=== PATIENT | female | born 1960 | race Caucasian/White ===

== ENCOUNTER 2017-06-22 05:09 | Emergency (ER) | payer BC, OTHER ==
[2017-06-22] MEDS ORDERED: NORMAL SALINE 1000 ML 1,000 ML IV ONE (05:31)
[2017-06-22] MEDS ORDERED: HYDROMORPHONE HCL INJ/PF 2 MG/ML AMPULE IV ONE ×2 (05:31→06:54)
[2017-06-22] MEDS ORDERED: ONDANSETRON HCL INJ/PF 4 MG/2 ML SDV IV ONE (05:31)
--- NOTE | 2017-06-22 05:33 | ER Document Report ---
ED Medical Screen (RME) - General Chief Complaint: Abdominal Pain Stated Complaint: LOWER RIGHT ABDOMINAL PAIN Time Seen by Provider: 06/22/17 05:28 Notes: 57-year-old female, chief complaint of right lower abdominal pain radiating around to her right flank. Symptoms started suddenly and woke her from sleep, pain is severe and sharp, she states she vomited multiple times before coming to the emergency department. She has had kidney stones many years ago. She takes no daily medications. She states her only other past medical history is C -section and a tubal ligation. TRAVEL OUTSIDE OF THE [place] IN LAST 30 DAYS: No - Related Data Allergies/Adverse Reactions: No Known Allergies Allergy (Unverified 06/22/17 05:13) Past Medical History Renal/ Medical History: Denies: Hx Peritoneal Dialysis Past Surgical History: Reports: Hx Section Physical Exam - Vital signs Vitals: Temp Pulse Resp BP Pulse Ox 97.6 F 80 22 H 201/96 H 98 06/22/17 05:19 06/22/17 05:19 06/22/17 05:19 06/22/17 05:19 06/22/17 05:19 - Abdominal Tenderness: Tender - General right lower abdominal tenderness - Back Back: CVA tenderness - Right-sided CVA tenderness Course - Vital Signs Vital signs: Temp Pulse Resp BP Pulse Ox 97.6 F 80 22 H 201/96 H 98 06/22/17 05:19 06/22/17 05:19 06/22/17 05:19 06/22/17 05:19 06/22/17 05:19
[2017-06-22 06:01] LABS: ABSOLUTE BASOPHILS # (AUTO) 0.1 10^3/uL (0.0-0.2); ABSOLUTE EOSINOPHILS # (AUTO) 0.4 10^3/uL (0.0-0.6); ABSOLUTE LYMPHOCYTES (AUTO) 2.4 10^3/uL (0.5-4.7); ABSOLUTE MONOCYTES (AUTO) 0.7 10^3/uL (0.1-1.4); ABSOLUTE NEUT (AUTO) 8.7 10^3/uL (1.7-8.2); BASOPHILS % (AUTO) 0.7 % (0-2); EOSINOPHILS % (AUTO) 3.6 % (0-6); LYMPHOCYTES % (AUTO) 19.5 % (13-45); MEAN CORPUSCULAR HEMOGLOBIN 29.2 pg (27.0-33.4); MEAN CORPUSCULAR HGB CONC 33.4 g/dL (32.0-36.0); MEAN CORPUSCULAR VOLUME 87 fl (80-97); MONOCYTES % (AUTO) 5.8 % (3-13); PLATELET COUNT 312 10^3/uL (150-450); RED BLOOD COUNT 4.82 10^6/uL (3.72-5.28); RED CELL DISTRIBUTION WIDTH 12.7 % (11.5-14.0); SEGMENTED NEUTROPHILS % (AUTO) 70.4 % (42-78); TOTAL CELLS COUNTED % (AUTO) 100 %; WHITE BLOOD COUNT 12.4 10^3/uL (4.0-10.5)
--- NOTE | 2017-06-22 06:15 | RADIOLOGY REPORT (SQ) ---
EXAM DESCRIPTION: CT LTD RENAL STONE PROTOCOL ON CLINICAL HISTORY: 57 years Female, right abd and flank pain, vomiting COMPARISON: None. TECHNIQUE: No contrast. Coronal and sagittal reformat. This exam was performed according to our departmental dose-optimization program, which includes automated exposure control, adjustment of the mA and/or kV according to patient size and/or use of iterative reconstruction technique. FINDINGS: 0.2 cm right ureterovesicular junction stone, mild/moderate right hydronephrosis/hydroureter. No free fluid. Punctate uncomplicated left nephrolithiasis. Moderate hepatic steatosis with focal sparing. Moderate fat replacement of the pancreatic head. Splenule. Normal appendix. Normal CT appearance of the gallbladder. Mild scoliotic curvature. Bilateral tubal ligation clips. Unenhanced inferior chest, intra-abdominal/intrapelvic structures, and musculoskeleton appear otherwise grossly intact. IMPRESSION: 0.2 cm right UVJ stone with low-grade obstruction.
[2017-06-22 06:17] LABS: ALANINE AMINOTRANSFERASE 76 U/L (9-52); ALBUMIN 4.8 g/dL (3.5-5.0); ALKALINE PHOSPHATASE 120 U/L (38-126); ANION GAP 14 (5-19); ASPARTATE AMINO TRANSFERASE 44 U/L (14-36); BILIRUBIN,DIRECT 0.3 mg/dL (0.0-0.4); BILIRUBIN,TOTAL 0.5 mg/dL (0.2-1.3); BLOOD UREA NITROGEN 21 mg/dL (7-20); CARBON DIOXIDE 24 mmol/L (22-30); CHLORIDE 105 mmol/L (98-107); GLUCOSE 206 mg/dL (75-110); POTASSIUM 4.3 mmol/L (3.6-5.0); SODIUM 143.4 mmol/L (137-145); TOTAL PROTEIN 7.7 g/dL (6.3-8.2)
[2017-06-22] MEDS ORDERED: KETOROLAC TROMETHAMINE INJ/PF 30 MG/1 ML SDV IV ONE (06:42)
[2017-06-22] MEDS ORDERED: TAMSULOSIN HCL 0.4 MG CAP.SR.24H PO ONE (06:55)
--- NOTE | 2017-06-22 07:03 | ER Document Report ---
ED General - General Chief Complaint: Abdominal Pain Stated Complaint: LOWER RIGHT ABDOMINAL PAIN Time Seen by Provider: 06/22/17 05:28 Notes: 57-year-old female history history of previous kidney stone woke at 2 AM with severe pain in her right back and radiating down to the right lower quadrant. Positive nausea and vomiting. Nothing seems to make it better or worse. Denies any fevers, chills, sweats. TRAVEL OUTSIDE OF THE [place] IN LAST 30 DAYS: No - HPI Onset: Just prior to arrival Onset/Duration: Sudden Quality of pain: Sharp Severity: Severe Pain Level: 5 Associated symptoms: Nausea - Related Data Allergies/Adverse Reactions: No Known Allergies Allergy (Unverified 06/22/17 05:13) Past Medical History - General Information source: Patient - Social History Smoking Status: Never Smoker Cigarette use (# per day): No Drug Abuse: None Lives with: Family Family History: Reviewed & Not Pertinent Patient has suicidal ideation: No Patient has homicidal ideation: No - Medical History Medical History: Negative - Past Medical History Cardiac Medical History: Reports: None Pulmonary Medical History: Reports: None EENT Medical History: Reports: None Neurological Medical History: Reports: None Endocrine Medical History: Reports: None Renal/ Medical History: Denies: Hx Peritoneal Dialysis GI Medical History: Reports: None, Other - The stone Musculoskeltal Medical History: Reports None Past Surgical History: Reports: Hx Section Review of Systems - Review of Systems Constitutional: No symptoms reported EENT: No symptoms reported Cardiovascular: No symptoms reported Respiratory: No symptoms reported Gastrointestinal: Abdominal pain, Nausea, Vomiting Genitourinary: No symptoms reported Female Genitourinary: No symptoms reported Musculoskeletal: No symptoms reported Skin: No symptoms reported Hematologic/Lymphatic: No symptoms reported Neurological/Psychological: No symptoms reported Physical Exam - Vital signs Vitals: Temp Pulse Resp BP Pulse Ox 97.6 F 80 22 H 201/96 H 98 06/22/17 05:19 06/22/17 05:19 06/22/17 05:19 06/22/17 05:19 06/22/17 05:19 Interpretation: Normal - General General appearance: Alert In distress: Moderate Notes: Uncomfortable appearing - HEENT Head: Normocephalic, Atraumatic Eyes: Normal Pupils: PERRL - Respiratory Respiratory status: No respiratory distress Chest status: Nontender Breath sounds: Normal Chest palpation: Normal - Cardiovascular Rhythm: Regular Heart sounds: Normal auscultation Murmur: No - Abdominal Inspection: Normal Distension: No distension Bowel sounds: Normal Tenderness: Tender - Mild tenderness to palpation right mid abdomen Organomegaly: No organomegaly - Back Back: Normal, Nontender - Extremities General upper extremity: Normal inspection, Nontender, Normal color, Normal ROM , Normal temperature General lower extremity: Normal inspection, Nontender, Normal color, Normal ROM , Normal temperature, Normal weight bearing. No: Carson's sign - Neurological Neuro grossly intact: Yes Cognition: Normal Orientation: AAOx4 [place] Coma Scale Eye Opening: Spontaneous Jonny Coma Scale Verbal: Oriented Jonny Coma Scale Motor: Obeys Commands [place] Coma Scale Total: 15 Speech: Normal Motor strength normal: LUE, RUE, LLE, RLE Sensory: Normal - Psychological Associated symptoms: Normal affect, Normal mood - Skin Skin Temperature: Warm Skin Moisture: Dry Skin Color: Normal Course - Re-evaluation Re-evalutation: 06/22/17 07:14 Vision obviously uncomfortable. Getting pain medication and fluid. Nausea control. Possible kidney stone. Will order CT scan to reassess per 06/22/17 07:14 Laboratory 06/22/17 06/22/17 05:33 05:33 WBC 12.4 H RBC 4.82 Hgb 14.0 Hct 42.0 MCV 87 MCH 29.2 MCHC 33.4 RDW 12.7 Plt Count 312 Seg Neutrophils % 70.4 Lymphocytes % 19.5 Monocytes % 5.8 Eosinophils % 3.6 Basophils % 0.7 Absolute Neutrophils 8.7 H Absolute Lymphocytes 2.4 Absolute Monocytes 0.7 Absolute Eosinophils 0.4 Absolute Basophils 0.1 Sodium 143.4 Potassium 4.3 Chloride 105 Carbon Dioxide 24 Anion Gap 14 BUN 21 H Creatinine 0.83 Est GFR ( Amer) > 60 Est GFR (Non-Af Amer) > 60 Glucose 206 H Calcium 10.0 Total Bilirubin 0.5 Direct Bilirubin 0.3 Neonat Total Bilirubin Not Reportable Neonat Direct Bilirubin Not Reportable Neonat Indirect Bili Not Reportable AST 44 H ALT 76 H Alkaline Phosphatase 120 Total Protein 7.7 Albumin 4.[address] 06/22/17 05:31 IMPRESSION: 0.2 cm right UVJ stone with low-grade obstruction. 06/22/17 08:00 She feeling much better at this time. Has a small 0.2 cm right UVJ stone with no significant obstruction. Small low-grade obstruction. No evidence of infection. Will discharge her at this time with some pain medications as well as nausea control and pain anti-inflammatory and Flomax. - Vital Signs Vital signs: Temp Pulse Resp BP Pulse Ox 98.1 F 80 16 178/107 H 95 06/22/17 07:37 06/22/17 05:19 06/22/17 07:38 06/22/17 07:38 06/22/17 07:38 - Laboratory Result Diagrams: 06/22/17 05:33 06/22/17 05:33 Laboratory results interpreted by me: 06/22/17 06/22/17 06/22/17 05:33 05:33 07:32 WBC 12.4 H Absolute Neutrophils 8.7 H BUN 21 H Glucose 206 H AST 44 H ALT 76 H Urine Protein 30 H Urine Glucose (UA) 50 H Urine Blood SMALL H - Diagnostic Test Radiology reviewed: Reports reviewed Discharge - Discharge Clinical Impression: Kidney stone on right side Condition: Good Disposition: HOME, SELF-CARE Additional Instructions: Kidney Stone You are passing or have passed a kidney stone. These stones are usually due to increased calcium or uric acid concentrations in your urine. Stones within the kidney itself are not painful. The pain occurs as the stone leaves the kidney to pass down the long tube, called the ureter, leading to the bladder. If the stone is small, it will usually pass by itself. Most patients can pass the stone at home. You will usually receive medications for pain, nausea or vomiting, and sometimes a medication to assist in passing the kidney stone. However, if the pain is very severe or if vomiting prevents you from taking oral pain medications, you may need to return for further treatment. Drink three or four quarts of fluids per day. You will be given pain medication (if needed) and urine strainers. Strain all your urine to see if the stone passes. If your doctor has asked you to bring the stone in for analysis, return with the stone once it has passed. Return if pain or vomiting become severe, if you develop a high fever, if you are unable to pass your urine, or if other unusual symptoms occur. Prescriptions: Ibuprofen [Motrin 800 mg Tablet] 800 mg PO Q8H PRN #30 tab PRN Reason: Ondansetron [Zofran Odt 4 mg Tablet] 1 - 2 tab PO Q4H PRN #15 tab.rapdis PRN Reason: For Nausea/Vomiting Oxycodone HCl/Acetaminophen [Percocet 5-325 mg Tablet] 1 - 2 tab PO Q4H PRN #15 tablet PRN Reason: Tamsulosin HCl [Flomax 0.4 mg Cap.sr] 0.4 mg PO DAILY #7 cap.sr.24h
[2017-06-22 07:51] LABS: APPEARANCE,URINE CLEAR; BILIRUBIN,URINE NEGATIVE (NEGATIVE); COLOR,URINE YELLOW; GLUCOSE, URINE 50 mg/dL (NEGATIVE); KETONES,URINE NEGATIVE (NEGATIVE); LEUKOCYTE ESTERASE,URINE NEGATIVE (NEGATIVE); NITRITE,URINE NEGATIVE (NEGATIVE); PROTEIN,URINE 30 mg/dL (NEGATIVE); URINE SPECIFIC GRAVITY 1.013; UROBILINOGEN,URINE NEGATIVE mg/dL (<2.0)
[2017-06-22 08:24] VITALS: BP 175/100
== END 2017-06-22 08:30 | disposition home or self-care (01) ==
LOC: ER 05:09
DX: N13.2 Hydronephrosis with renal and ureteral calculous obstruction (principal); M54.9 Dorsalgia, unspecified; R10.31 Right lower quadrant pain; R11.2 Nausea with vomiting, unspecified
CPT/HCPCS: 99285; 96361; 96374; 96375; 36415; 85025; 80053; 81001; 76380; J1885; J1170; J2405; J7030

== ENCOUNTER 2017-08-27 07:33 | Emergency (ER) | payer BC ==
--- NOTE | 2017-08-27 08:51 | ER Document Report ---
ED Extremity Problem, Lower - General Chief Complaint: Leg Swelling Stated Complaint: LEG SWELLING Time Seen by Provider: 08/27/17 07:43 Notes: Patient is a 57-year-old female presents emergency department with chief complaint of right lower extremity swelling, redness. Patient states that her symptoms started on August 20 with a fever and she woke up the next day with right lower extremity redness on her anterior nguyen and posterior calf. She denies any pain or swelling at that time. She states that she went to urgent care on the and was started on clindamycin for lower extremity cellulitis. She states that she followed up with them 2 days later on the and was told to continue taking the antibiotics even though her symptoms are progressing. She states that even on the antibiotic there are now raised swollen areas on top of her skin that are nontender. She denies any pain with walking. She has been keeping it elevated at home. She denies any tobacco use , hormone use, recent travel or recent surgeries. She denies any past medical history significant for carcinoma, lupus, autoimmune disorder. States that she does have insurance but she does not have a primary care provider. TRAVEL OUTSIDE OF THE [place] IN LAST 30 DAYS: No - Related Data Allergies/Adverse Reactions: No Known Allergies Allergy (Unverified 06/22/17 05:13) Past Medical History - Social History Smoking Status: Never Smoker Family History: Reviewed & Not Pertinent Renal/ Medical History: Denies: Hx Peritoneal Dialysis Past Surgical History: Reports: Hx Section Physical Exam - Vital signs Vitals: Temp Pulse Resp BP Pulse Ox 97.7 F 103 H 14 154/92 H 97 08/27/17 07:38 08/27/17 07:38 08/27/17 07:38 08/27/17 07:38 08/27/17 07:38 Course - Re-evaluation Re-evalutation: 08/27/17 08:51 Patient is a 57-year-old female who is hemodynamically stable, no acute distress and afebrile. Presentation is consistent with either an underlying vasculitis, concern for DVT even though will score is 0 due to likely diagnosis of underlying vasculitis or associated cellulitis. Will send for ultrasound of lower extremity as well as inflammatory markers. 08/27/17 10:35 CBC stable at 13 without any concerns for underlying sepsis with stable vitals. No evidence of anemia. Sed rate 98 and CRP 159 are both elevated. Presentation today is consistent with an underlying vasculitis. Discussed with patient that we will switch her antibiotics for more broad-spectrum coverage against MRSA given her blanching erythema within the raised areas that are concerning for vasculitis and will initiate her on a steroid taper. I do not suspect any evidence of erythema multiform a, blood dyscrasias, SJS or TEN. discussed with her that she will need to follow-up with dermatology for biopsy. Patient agrees with plan. Strict return precautions were discussed and patient stable for discharge - Vital Signs Vital signs: Temp Pulse Resp BP Pulse Ox 97.7 F 103 H 20 147/95 H 96 08/27/17 07:38 08/27/17 07:38 08/27/17 09:01 08/27/17 08:21 08/27/17 09:01 - Laboratory Result Diagrams: 08/27/17 08:28 08/27/17 08:28 Laboratory results interpreted by me: 08/27/17 08/27/17 08:28 08:28 WBC 13.3 H Eosinophils % 6.1 H Absolute Neutrophils 9.7 H Absolute Eosinophils 0.8 H ESR 98 H Potassium 3.4 L BUN 27 H Creatinine 1.33 H Est GFR ( Amer) 50 L Est GFR (Non-Af Amer) 41 L Glucose 122 H Direct Bilirubin 0.5 H C-Reactive Protein 159.5 H Discharge - Discharge Clinical Impression: Localized skin eruption Condition: Good Disposition: HOME, SELF-CARE Instructions: Vasculitis ([facility]), Cellulitis ([facility]) Additional Instructions: Due to presentation today there is no evidence of a blood clot in your leg on ultrasound. Your blood work did not show any overwhelming concerns for infection. Your are being treated for something called vasculitis which is concerning for inflammation of the superficial veins in your skin. This is why you will be taking steroids. Otherwise we will continue you on a different course of antibiotics to treat for any underlying or developing infection. Please return to the emergency department with any worsening/brooke drainage, fevers, chills, spreading redness up her leg. Please follow-up with dermatology provided in your primary care doctor. Prescriptions: Cephalexin Monohydrate [Keflex 500 mg Capsule] 500 mg PO QID 7 Days #28 capsule Prednisone 10 mg PO ASDIR PRN 18 Days tablet PRN Reason: Sulfamethoxazole/Trimethoprim [Bactrim Ds Tablet] 1 each PO BID #14 tablet Forms: Elevated Blood Pressure Referrals: KAYDEN COY DO [ACTIVE STAFF] - Follow up in 3-5 days
[2017-08-27 08:55] LABS: ABSOLUTE BASOPHILS # (AUTO) 0.1 10^3/uL (0.0-0.2); ABSOLUTE EOSINOPHILS # (AUTO) 0.8 10^3/uL (0.0-0.6); ABSOLUTE LYMPHOCYTES (AUTO) 1.8 10^3/uL (0.5-4.7); ABSOLUTE MONOCYTES (AUTO) 0.9 10^3/uL (0.1-1.4); ABSOLUTE NEUT (AUTO) 9.7 10^3/uL (1.7-8.2); BASOPHILS % (AUTO) 0.5 % (0-2); EOSINOPHILS % (AUTO) 6.1 % (0-6); HEMOGLOBIN 13.6 g/dL (12.0-15.5); LYMPHOCYTES % (AUTO) 13.8 % (13-45); MEAN CORPUSCULAR HEMOGLOBIN 29.2 pg (27.0-33.4); MEAN CORPUSCULAR HGB CONC 34.1 g/dL (32.0-36.0); MEAN CORPUSCULAR VOLUME 86 fl (80-97); PLATELET COUNT 401 10^3/uL (150-450); RED BLOOD COUNT 4.67 10^6/uL (3.72-5.28); RED CELL DISTRIBUTION WIDTH 12.5 % (11.5-14.0); SEGMENTED NEUTROPHILS % (AUTO) 72.6 % (42-78); TOTAL CELLS COUNTED % (AUTO) 100 %; WHITE BLOOD COUNT 13.3 10^3/uL (4.0-10.5)
[2017-08-27 08:56] LABS: INTERNATIONAL RATION (INR) 0.97; PROTHROMBIN TIME 13.6 SEC (11.4-15.4)
[2017-08-27 09:07] LABS: ALANINE AMINOTRANSFERASE 48 U/L (9-52); ALBUMIN 3.9 g/dL (3.5-5.0); ALKALINE PHOSPHATASE 119 U/L (38-126); ANION GAP 16 (5-19); ASPARTATE AMINO TRANSFERASE 35 U/L (14-36); BILIRUBIN,DIRECT 0.5 mg/dL (0.0-0.4); BILIRUBIN,TOTAL 0.6 mg/dL (0.2-1.3); BLOOD UREA NITROGEN 27 mg/dL (7-20); CALCIUM 9.6 mg/dL (8.4-10.2); CARBON DIOXIDE 22 mmol/L (22-30); CHLORIDE 106 mmol/L (98-107); GLUCOSE 122 mg/dL (75-110); POTASSIUM 3.4 mmol/L (3.6-5.0); SODIUM 144.3 mmol/L (137-145); TOTAL PROTEIN 7.1 g/dL (6.3-8.2)
[2017-08-27 09:19] LABS: C-REACTIVE PROTEIN 159.5 mg/L (<10.0)
[2017-08-27 09:43] LABS: ERYTHROCYTE SEDIMENTATION RATE 98 mm/hr (0-30)
[2017-08-27] MEDS ORDERED: SULFAMETHOXAZOLE/TRIMETHOPRIM 800-160 MG TABLET PO ONE (10:56)
[2017-08-27] MEDS ORDERED: PREDNISONE 20 MG TABLET PO ONE (10:56)
[2017-08-27] MEDS ORDERED: CEPHALEXIN 500 MG CAPSULE PO ONE (10:56)
[2017-08-27 12:31] VITALS: BP 150/91
--- NOTE | 2017-08-27 16:40 | XCELERA REPORT ---
[address] [address] Lower Extremity Venous Evaluation Name: NOEMI BLAIR Age: 57 yrs Gender: Female : 1960 Patient Status: Emergency Patient Location: ER Study Date: 08/27/2017 09:04 AM Procedure: Color flow and duplex imaging of the veins of the right lower extremity as well as the left Common Femoral vein. Reason For Study: right LE swelling, and redness Ordering Physician: MATEO AGUDELO PA-C Performed By: Neville Carney Right Sided Venous Evaluation Normal vessel filling wall to wall, compression and augmentation as well as Colour flow down to the infrageniculate veins. Left Sided Venous Evaluation The left common femoral vein is fully compressible. Spontaneous and phasic flow is present in the left common femoral vein. Interpretation Summary No duplex evidence of DVT or obstruction in the right lower extremity nor in the left Common Femoral vein. : MATEO AGUDELO PA-C > Jef Ramey
== END 2017-08-27 11:14 | disposition home or self-care (01) ==
LOC: ER 07:33
DX: R21 Rash and other nonspecific skin eruption (principal); L03.119 Cellulitis of unspecified part of limb
CPT/HCPCS: 99284; 36415; 85025; 85652; 85610; 85730; 86140; 80053; 93971 ×2; J7512